=== PATIENT | male | born 1960 | race Caucasian/White ===

== ENCOUNTER 2016-12-17 18:12 | Observation (INO) | payer BC ==
[2016-12-17] MEDS ORDERED: NITROGLYCERIN OINT 1 INCH/GM PACKET TOPICAL STA (18:39)
--- NOTE | 2016-12-17 19:16 | XR ---
EXAMINATION TYPE: XR chest 2V DATE OF EXAM: 12/17/2016 6:57 PM COMPARISON: 11/22/2014 HISTORY: Chest pain TECHNIQUE: Frontal and lateral views of the chest are obtained. FINDINGS: Heart and mediastinum are normal. Lungs are clear. Diaphragm is normal. There are chest le ads. Bony thorax is intact. IMPRESSION: Normal chest. No change.
[2016-12-17 19:27] LABS: Basophils % (A) 0 %; CH 30.4; CHCM 34.3; Eosinophils # (A) 0.1 k/uL (0-0.7); Eosinophils % (A) 1 %; HDW 2.54; HGB 13.3 gm/dL (13.0-17.5); Luc # (Auto) 0.15; Luc % (Auto) 2; Lymphocytes # (A) 1.1 k/uL (1.0-4.8); Lymphocytes % (A) 17 %; MCH 30.4 pg (25.0-35.0); MCHC 34.1 g/dL (31.0-37.0); MCV 89.2 fL (80.0-100.0); Mean Platelet Volume 8.2; Monocytes # (A) 0.3 k/uL (0-1.0); Monocytes % (A) 4 %; Neutrophils # (A) 4.9 k/uL (1.3-7.7); Neutrophils % (A) 75 %; RBC 4.37 m/uL (4.30-5.90); RDW 12.8 % (11.5-15.5); WBC 6.5 k/uL (3.8-10.6); WBC (Perox) 6.65
[2016-12-17 19:40] LABS: ALT 33 U/L (21-72); AST 28 U/L (17-59); Alkaline Phosphatase 64 U/L (38-126); Anion Gap 14 mmol/L; Blood Urea Nitrogen 19 mg/dL (9-20); Carbon Dioxide 25 mmol/L (22-30); Chloride 103 mmol/L (98-107); Glucose 89 mg/dL (74-99); Magnesium 1.9 mg/dL (1.6-2.3); Non-African American GFR(MDRD) >60 (>60 ml/min/1.73 sqM); Sodium 142 mmol/L (137-145); Total Bilirubin 0.7 mg/dL (0.2-1.3); Total Protein 7.5 g/dL (6.3-8.2)
[2016-12-17 19:41] LABS: Creatine Kinase 176 U/L (55-170)
[2016-12-17 19:42] LABS: Partial Thromboplastin Time 25.5 sec (22.0-30.0); Prothrombin Time 10.5 sec (9.0-12.0)
[2016-12-17 19:54] LABS: Creatine Kinase MB 1.3 ng/mL (0.0-2.4); Troponin I <0.012 ng/mL (0.000-0.034)
--- NOTE | 2016-12-17 21:00 | ED ---
Chest Pain HPI - General Chief Complaint: Chest Pain Stated Complaint: light headed, chest pains Time Seen by Provider: 12/17/16 18:31 Source: patient Mode of arrival: wheelchair Limitations: no limitations - History of Present Illness Initial Comments: This 56-year-old white male presents complaining of some chest pain. He describes as a dull ache in the midsternal and left side of his chest. He states that this occurred at approximately 5:30 PM. He felt somewhat lightheaded when this occurred. It occurred at rest while sitting and watching TV. He denies any radiation, nausea, or shortness of breath. He took 2 sublingual nitroglycerin of his 's and had relief of the pain. He did take aspirin and route to the hospital. He does relate having a dull pain to his left lower abdomen which she has had for the past week and his been following up with his primary doctor in this regard. He denies any leg pain or swelling or history of DVT or PE. He states that he did have some EKG changes this past year and saw a asbestos wire finisher and had a negative stress test and echocardiogram. No other complaints or modifying factors. He denies any cardiac disease otherwise. - Related Data Home Medications Medication Instructions Recorded Confirmed Aspirin [Adult Low Dose Aspirin EC] 81 mg PO DAILY 12/17/16 12/17/16 Inulin/Chromium Picolinate [Fiber 1 tab PO DAILY 12/17/16 12/17/16 Gummies Chew] Multivit-Min/FA/Lycopen/Lutein 1 tab PO DAILY 12/17/16 12/17/16 [Centrum Silver Men Tablet] Nitroglycerin Sl Tabs [Nitrostat] 0.4 mg SUBLINGUAL Q5M PRN 12/17/16 12/17/16 Tamsulosin HCl [Flomax] 0.8 mg PO DAILY 12/17/16 12/17/16 Vital Reds Powder 5 ml PO DAILY 12/17/16 12/17/16 Allergies Allergy/AdvReac Type Severity Reaction Status Date / Time No Known Allergies Allergy Verified 12/17/16 19:21 Review of Systems ROS Statement: Those systems with pertinent positive or pertinent negative responses have been documented in the HPI. ROS Other: All systems not noted in ROS Statement are negative. Past Medical History Past Medical History: No Reported History History of Any Multi-Drug Resistant Organisms: None Reported Past Surgical History: Orthopedic Surgery Past Psychological History: No Psychological Hx Reported Smoking Status: Never smoker Past Alcohol Use History: None Reported Past Drug Use History: Marijuana General Exam - General Exam Comments Initial Comments: GENERAL: The patient is well nourished and well hydrated. VITAL SIGNS: Heart rate, blood pressure, respiratory rate reviewed as recorded in nurse's notes. EYES: Pupils are round and reactive. Extraocular movements are intact. No conjunctival / lid redness or swelling. ENT: No external evidence of injury, swelling, or ecchymosis. Airway is patent. Throat is clear. NECK: Nontender. No swelling or evidence of injury. No subcutaneous emphysema. Trachea is midline. No thyroid mass. HEART: Regular rate and rhythm. Good peripheral pulses. LUNGS/CHEST: Breath sounds clear and equal bilaterally. No rales, rhonchi, or wheezes. No ecchymosis, subcutaneous emphysema, or tenderness. ABDOMEN: Abdomen soft without tenderness. No palpable masses or organomegaly. No peritoneal signs. No abdominal wall swelling or ecchymosis. EXTREMITIES: No extremity tenderness. Normal muscle tone and function. No thoracolumbar tenderness. NEUROLOGIC: Sensation is grossly intact. Cranial nerve exam reveals face is symmetrical, tongue is midline, speech is clear. SKIN: No abrasions or ecchymosis is noted. No induration or masses noted. PSYCHIATRIC: Alert and oriented. Appropriate behavior and judgment. Limitations: no limitations Course Vital Signs 12/17/16 18:13 Temperature 98.2 F Pulse Rate 91 Respiratory 20 Rate Blood Pressure 149/102 O2 Sat by Pulse 97 Oximetry Chest Pain MDM - MDM The patient was seen and examined. All diagnostics were reviewed. EKG shows a normal sinus rhythm at a rate of [address]-T wave changes noted. The WV interval is 144, QRS duration is 106, and QTC intervals 447. The patient had a chest x-ray which did not show any acute abnormalities. The cardiac profile labs are all essentially within normal limits. It is felt as though the patient would require admission to the hospital for further cardiac evaluation and to rule out acute coronary syndrome. He is agreeable. Case is discussed with internal medicine and they're agreeable to admission. Disposition Clinical Impression: Chest pain, Unstable angina pectoris Disposition: ADMITTED IP TO THIS HOSP Condition: Fair Time of Disposition: 21:00 Decision Date: 12/17/16 Decision Time: 21:00
[2016-12-17] MEDS ORDERED: HEPARIN SODIUM,PORCINE 5,000 UNIT/ML 1 ML VIAL IV ONE (21:01)
[2016-12-17] MEDS ORDERED: HEPARIN SODIUM,PORCINE 5,000 UNIT/ML 1 ML VIAL IV PRN (21:01)
[2016-12-17] MEDS ORDERED: NITROGLYCERIN SL TABS 0.4 MG TAB SUBLINGUAL PRN (21:01)
[2016-12-17] MEDS ORDERED: HEPARIN SODIUM,PORCINE/D5W PMX 25,000 UNIT in DEXTROSE/WATER 1 500ML.BAG IV SCH (21:15)
[2016-12-17 22:40] VITALS: BMI 24.9
[2016-12-17] MEDS: NITROGLYCERIN OINT 1 INCH/GM PACKET TOPICAL SCH (23:32)
[2016-12-18 01:29] LABS: Creatine Kinase 150 U/L (55-170)
[2016-12-18 01:40] LABS: Troponin I <0.012 ng/mL (0.000-0.034)
[2016-12-18] MEDS: NITROGLYCERIN OINT 1 INCH/GM PACKET TOPICAL SCH (06:12)
[2016-12-18 07:07] LABS: Creatine Kinase 156 U/L (55-170)
[2016-12-18 07:12] LABS: Cholesterol 198 mg/dL (<200); HDL Cholesterol 47 mg/dL (40-60); Triglycerides 89 mg/dL (<150)
[2016-12-18 07:19] LABS: Creatine Kinase MB 1.2 ng/mL (0.0-2.4); Troponin I <0.012 ng/mL (0.000-0.034)
[2016-12-18] MEDS ORDERED: SODIUM CHLORIDE 0.9% 1,000 ML in EMPTY BAG 1 BAG IV ONE (08:47)
[2016-12-18] MEDS ORDERED: ALPRAZolam 0.25 MG TAB PO PRN (08:47)
[2016-12-18] MEDS ORDERED: ALPRAZolam 0.5 MG TAB PO PRN (08:47)
[2016-12-18] MEDS ORDERED: NITROGLYCERIN SL TABS 0.4 MG TAB SUBLINGUAL PRN (08:47)
[2016-12-18] MEDS ORDERED: ATORVASTATIN 80 MG TAB PO STA (08:47)
[2016-12-18] MEDS ORDERED: ASPIRIN 325 MG TAB PO STA (08:47)
[2016-12-18] MEDS ORDERED: TAMSULOSIN 0.4 MG CAP.ER.24H PO SCH (09:00)
[2016-12-18] MEDS ORDERED: VITAL REDS PO SCH (09:00)
[2016-12-18] MEDS ORDERED: ENOXAPARIN 40 MG/0.4 ML SYRINGE SQ SCH (09:00)
[2016-12-18] MEDS ORDERED: ASPIRIN 325 MG TAB PO SCH (09:00)
--- NOTE | 2016-12-18 09:29 | CONS ---
DATE OF CONSULTATION: . CHIEF COMPLAINT: Chest pain. Maikel is a 56-year-old gentleman with no significant past medical history that used to smoke cigarettes, that he quit about a year-old ago and has family history of premature coronary artery disease who presented to the hospital complaining of chest pain. He describes it as a sudden onset precordial chest pressure 6/10 intensity following which he became diaphoretic, he seemed to have felt the discomfort in his arms also. This pain had gradually subsided and he became pain free and had been doing well since admission. He is being treated with intravenous heparin, nitrates and aspirin. Three sets of cardiac enzymes ruled out for myocardial infarction and creatinine is normal. Past medical history is negative for hypertension, diabetes, dyslipidemia. Medications at home include: 1. Aspirin. 2. Sublingual nitroglycerin on a p.r.n. basis. 3. Flomax. No known drug allergies. FAMILY HISTORY: Significant for premature coronary artery disease. SOCIAL HISTORY: Quit smoking a year ago. REVIEW OF SYSTEMS: HEENT: Unremarkable. CARDIAC: As described above. RESPIRATORY: Negative. GI: Negative. GENITOURINARY: Negative. Allergy/immunology: Negative. SKIN: Negative. MUSCULOSKELETAL: Significant for arthritis. PSYCHOSOCIAL: Negative. ENDOCRINE: Negative. Dermatology: Negative. CONSTITUTIONAL: Negative. Oncological: Negative. The rest of the system review is not relevant. On exam, comfortable at rest. Vital signs are stable. There is no jugular venous distention. Carotid upstroke is normal. There is no bruit. Chest exam reveals good air entry bilaterally. Heart exam reveals first and second heart sounds. No gallop. No murmur, no rub. ABDOMEN: Soft, nontender. Exam of extremities did not reveal any edema. Peripheral pulses are felt. FLOOR SUPERVISOR exam did not reveal focal neurological deficits. Labs show a hemoglobin of 13.3, platelet count is 215. Potassium is 4. Creatinine is 0.9. Tropes are negative. LDL cholesterol is elevated at 133. ASSESSMENT: Unstable angina. PLAN: I talked to patient about his treatment options including coronary angiography to evaluate his coronary anatomy and streamline his management versus stress testing. Patient had a stress test within the last one year that was unremarkable opted to go for cardiac cath. Understands risks and benefits, and alternatives.
[2016-12-18] MEDS ORDERED: IV FLUID CONTINUATION 1,000 ML IV ONE (10:11)
[2016-12-18] MEDS ORDERED: LIDOCAINE 2% INJ 20 MG/ML (20 ML MDV) ONE (10:12)
[2016-12-18] MEDS ORDERED: diphenhydrAMINE 50 MG/ML 1 ML VIAL ONE (10:18)
[2016-12-18] MEDS ORDERED: MIDAZOLAM 2 MG/2 ML VIAL ONE (10:18)
--- NOTE | 2016-12-18 10:21 | ECHOF ---
Referral Reason: MEASUREMENTS -------- HEIGHT: 172.7 cm WEIGHT: 74.4 kg BP: 154/40 RVIDd: 2.9 cm (< 3.3) IVSd: 1.0 cm (0.6 - 1.1) LVIDd: 5.1 cm (3.9 - 5.3) LVPWd: 1.0 cm (0.6 - 1.1) IVSs: 1.1 cm LVIDs: 4.3 cm LVPWs: 1.3 cm LA Diam: 2.8 cm (2.7 - 3.8) LAESV Index (A-L): 34.61 ml/m Ao Diam: 3.7 cm (2.0 - 3.7) AV Cusp: 2.4 cm (1.5 - 2.6) LA Diam: 3.4 cm (2.7 - 3.8) MV EXCURSION: 23.601 mm (> 18.000) MV EF SLOPE: 88 mm/s (70 - 150) EPSS: 2.0 cm MV E Daren: 0.73 m/s MV DecT: 177 ms MV A Daren: 0.66 m/s MV E/A Ratio: 1.12 RAP: 5.00 mmHg FINDINGS -------- Sinus rhythm. This was a technically adequate study. The left ventricular size is normal. There is borderline concentric left ventricular hypertrophy. Overall left ventricular systolic function is normal with, an EF between 55 - 60 %. The right ventricle is normal in size. LA is moderately dilated 34-39 ml/m2 The right atrial size is normal. The aortic valve is trileaflet and appears structurally normal. There is no evidence of aortic regurgitation. The mitral valve is normal. Mild mitral regurgitation is present. Mild tricuspid regurgitation present. There is no evidence of pulmonary hypertension. The right ventricular systolic pressure, as measured by Doppler, is {RVSP}. Trace/mild (physiologic) pulmonic regurgitation. The aortic root size is normal. There is no pericardial effusion. CONCLUSIONS -------- 1. Sinus rhythm. 2. There is no pericardial effusion. 3. There is borderline concentric left ventricular hypertrophy. 4. Overall left ventricular systolic function is normal with, an EF between 55 - 60 %. 5. LA is moderately dilated 34-39 ml/m2 6. The aortic valve is trileaflet and appears structurally normal. 7. Mild mitral regurgitation is present. 8. Mild tricuspid regurgitation present. 9. There is no evidence of pulmonary hypertension. 10. Trace/mild (physiologic) pulmonic regurgitation. SCHOOL INSPECTOR: Margo Knight RDCS
[2016-12-18] MEDS ORDERED: MIDAZOLAM 2 MG/2 ML VIAL IV ONE (10:37)
[2016-12-18] MEDS ORDERED: diphenhydrAMINE 50 MG/ML 1 ML VIAL IVP ONE (10:39)
[2016-12-18] MEDS ORDERED: LIDOCAINE 2% INJ 20 MG/ML SQ ONE (10:41)
[2016-12-18] MEDS ORDERED: IOHEXOL 350 MG/ML 100 ML BOTTLE INJ ONE (11:05)
[2016-12-18] MEDS ORDERED: CLOPIDOGREL 75 MG TAB PO SCH (11:15)
--- NOTE | 2016-12-18 11:48 | CC ---
DATE OF SERVICE: INDICATION: Unstable angina. PROCEDURE NOTE: After obtaining informed consent, left heart catheterization and coronary angiogram are performed via the right femoral artery using standard Faheem catheters. Patient tolerated the procedure well without any obvious immediate complications. A femoral angiogram was performed. Angio-Seal was deployed for hemostasis. The total sedation time was 20 minutes. FINDINGS: 1. HEMODYNAMICS: Left ventricular end-diastolic pressure is 8 to 10 mm. There is no significant gradient across the aortic valve. 2. LEFT VENTRICULOGRAM: Left ventriculogram is not performed. 3. ANGIOGRAPHIC DATA: Left Main Coronary Artery: Left main coronary artery appears calcified, but is free of stenosis. It divides into left anterior descending coronary artery, ramus intermedius and circumflex coronary artery. Circumflex coronary artery is a nondominant vessel and is free of significant stenosis. Ramus intermedius is free of significant disease. LAD has a long segment of narrowing extending from primarily involving the LAD. At its worse, it seems to be a 50% stenosis. Right coronary artery is a large dominant vessel, shows atherosclerotic plaque involving proximal and mid RCA. There are no other focal hemodynamically significant lesions. CONCLUSION: Moderate atherosclerotic plaque involving the left anterior descending coronary artery. PLAN: Will treat the patient with optimal medical therapy with aspirin, Plavix, nitrates and statins. Arrange for an outpatient stress echo and if he has ischemia in LAD distribution, bring him back and do angioplasty of the LAD. Angiographic data was reviewed by Dr. Aponte the on-call lieutenant fire fighter.
[2016-12-18] MEDS ORDERED: CALCIUM POLYCARBOPHIL 625 MG TAB PO SCH (12:00)
[2016-12-18] MEDS ORDERED: MULTIVITAMINS, THERA 1 EACH TAB PO SCH (12:00)
[2016-12-18 16:42] VITALS: BP 133/88; PULSE 64; RESP 18; TEMP 97.8
[2016-12-18] MEDS ORDERED: ATORVASTATIN 40 MG TAB PO SCH (21:00)
--- NOTE | 2016-12-19 07:17 | HP ---
DATE OF ADMISSION: DATE OF SERVICE: 12/18/2016 Chief complaint is chest pain. HISTORY OF PRESENT ILLNESS: Mr. Edwards is a 56-year-old male without significant past medical history. Came to the hospital with complaints of chest pain, midsternal when he was sitting on the couch and talking to his . Patient says that chest pain associated with some dizziness and no radiation and no diaphoresis. No associated nausea or vomiting. Patient came to the hospital for evaluation. Patient does have a family history of premature coronary artery disease. Chest pain gradually subsided when he came to the hospital. Apparently, patient was found to have abnormal EKG by his primary physician, Dr. Oliver and was referred to brewer helper at [facility]. Patient had echocardiogram and stress test done there recently. Otherwise, patient denied any fever or chills. No recent illnesses. No sick contacts at home. No recent travel. REVIEW OF SYSTEMS: CONSTITUTIONAL: No fever. No chills. RESPIRATORY: No cough or sputum production. CARDIOVASCULAR: No chest pain. No short of breath. No leg swelling. ABDOMEN: No nausea, vomiting, or abdominal pain. Patient does have left inguinal discomfort for which patient is following with a urologist. PSYCHIATRIC: Cooperative. MUSCULOSKELETAL: Negative. All other 14-point review of systems negative except as above. PAST MEDICAL HISTORY: None. PAST SURGICAL HISTORY: Orthopedic surgery. ALLERGIES: No known drug allergies. SOCIAL HISTORY: Patient never a smoker. Patient denied any alcohol abuse. Patient does use marijuana on and off, no recent use. Home medications include: 1. Aspirin. 2. Fiber Gummies multivitamins. 3. Nitroglycerine sublingual. 4. Tamsulosin. 5. Vital Reds Powder. FAMILY HISTORY: No history of hypertension or diabetes. Patient says that family has a history of coronary artery disease in his father. PHYSICAL EXAMINATION: A 56-year-old male lying in the bed comfortably, awake, alert, oriented, x3. Appears to be in no apparent distress. VITALS: Blood pressure is 107/70, pulse is 58, respirations 16, temperature afebrile, pulse ox is 99% on room air. HEENT: Atraumatic, normocephalic. Neck is supple. No JVD. CVS EXAM: S1, S2 heard. No murmurs, no gallop, no rub. LUNGS: Bilateral air entry is present. No wheezing. No crackles. Nonlabored breathing. Abdomen is soft, nontender. Bowel sounds are present. ADMINISTRATIVE COORDINATOR: Awake, alert, oriented x3. No focal neurologic deficits, cranial nerves grossly intact. EXTREMITIES: No edema. Pulses palpable bilaterally. No clubbing or cyanosis. PSYCHIATRIC: Cooperative. LABORATORY DATA: WBC 6.5, hemoglobin 13.3, platelets 215, INR 1.0, sodium 142, potassium 4.0, chloride 103, bicarb is 25. BUN 19, creatinine 0.94. Magnesium 1.9. Troponin x3 negative. LDL is 133. EKG showed sinus arrhythmia with left vesicular block. IMPRESSION: 1. Unstable angina. Rule out acute coronary artery syndrome. 2. Hyperlipidemia. 3. History of never cigarette smoking. Marijuana use on and off. No recent use. 4. Recent cardiac work-up including stress test and echocardiogram at [facility]. DISCUSSION AND PLAN: Patient will be continued on tele monitoring, serial EKGs and troponins. Cardiology has seen the patient and recommended catheterization. Will continue with the current management and follow up closely. Further recommendations based on the clinical course.
[2016-12-19] MEDS ORDERED: ISOSORBIDE MONONITRATE ER 30 MG TAB.ER.24H PO SCH (09:00)
--- NOTE | 2016-12-19 12:04 | DS ---
DATE OF ADMISSION: 12/17/2016 DATE OF DISCHARGE: 12/18/2016 PROCEDURE: Cardiac catheterization procedure. DISCHARGE DIAGNOSES: 1. Unstable angina, negative cardiac catheterization. 2. Hyperlipidemia with LDL level of 133. 3. History of nicotine and smoking. 4. Marijuana occasionally. 5. Recent cardiac work-up at [facility]. HOSPITAL COURSE: Mr. Edwards is a 56-year-old male without significant past medical history admitted to the hospital with complaints of chest pain. Patient continued on telemetry monitoring. No new EKG changes noted. Patient underwent cardiac catheterization which was nonobstructive. Cardiology recommended follow-up as an outpatient and otherwise, patient does have some abdominal discomfort in the left lower quadrant mainly in the inguinal area. The patient does not know whether he has lifted heavy weights or not. Patient was seen by the Urologist. No active complaints at this time. Otherwise, patient was continued on Flomax which is his home medication and the patient was started on aspirin, statins and Plavix as per Cardiology recommendations. Cardiology recommended medical management. Patient does have moderate atherosclerotic plague involving the LAD. Recommended a follow-up outpatient stress test and possible angioplasty at that time. Patient otherwise currently is chest pain free and is being discharged home and follow as an outpatient with Dr. Estrada further management. DISCHARGE PHYSICAL EXAMINATION: A 56-year-old male lying in bed comfortably, awake, alert, oriented x3, appears to be in no apparent distress. VITALS: Blood pressure 133/88, pulse is 64, respirations 18, temperature afebrile, pulse ox 98% on room air. LABORATORY DATA: Reviewed. Troponin x3 negative. LDL is 133. Discharge physical examination done. His medication include: 1. Fiber gum chew 1 tablet p.o. daily. 2. Flomax 0.8 mg p.o. daily. 3. Vital Reds powder 5 mL p.o. daily. 4. Aspirin 325 mg p.o. daily. 5. Atorvastatin 40 mg p.o. at bedtime. 6. Clopidogrel 75 mg p.o. daily. 7. Imdur 30 mg p.o. daily. 8. Nitroglycerin sublingual 0.4 mg q.5 minutes p.r.n. for chest pain. Home with self-care. Activity as tolerated and follow with Dr. Sherry Oliver in 1 to [address] Amaury Estrada in 3 weeks.
== END 2016-12-18 18:36 | disposition home or self-care (01) ==
LOC: EC 18:12 → 3OBS 21:01
PROVIDERS: ADMIT Internal Medicine; ATTEND Internal Medicine
DX: I25.110 Atherosclerotic heart disease of native coronary artery with unstable angina pectoris (principal); E78.5 Hyperlipidemia, unspecified; F12.90 Cannabis use, unspecified, uncomplicated; Z79.82 Long term (current) use of aspirin; R42 Dizziness and giddiness; Z79.899 Other long term (current) drug therapy; R61 Generalized hyperhidrosis; I25.83 Coronary atherosclerosis due to lipid rich plaque
CPT/HCPCS: 36415; 93005; 93306; 93458; 80061; 80053; 82550 ×2; 82553 ×2; 83735; 84484 ×2; 85025; 85610; 85730 ×2; 71020; 99285; 96376; G0378 ×2; C1760; C1894; C1769; J2001; J2250; J1200; J1644 ×2; Q9967; 96365; 96366

== ENCOUNTER → 2017-08-29 | Outpatient (CLI) | payer BC ==
--- NOTE | 2017-08-29 08:34 | US ---
EXAMINATION TYPE: US abdomen complete DATE OF EXAM: 08/29/2017 COMPARISON: NONE CLINICAL HISTORY: LUQ Pain R10.12. EXAM MEASUREMENTS: Liver Length: 14.7 cm Gallbladder Wall: 0.2 cm CBD: 0.6 cm Spleen: 12.3 cm Right Kidney: 10.9 x 4.6 x 4.3 cm Left Kidney: 11.2 x 5.4 x 5.0 cm Pancreas: Tail obscured by overlying bowel gas, visualized portions wnl Liver: wnl Gallbladder: wnl Evidence for sonographic Rodriguez's sign: No CBD: Measuring upper limits of normal Spleen: wnl Right Kidney: Multiple cystic areas visualized, largest mid pole measuring 1.3 x 1.3 x 1.4 cm Left Kidney: Cyst visualized measuring 0.7 x 0.7 x 0.7 cm Upper IVC: wnl Abd Aorta: Limited visualization due to overlying bowel gas, wnl as visualized The liver is homogenous. The intrahepatic portion of the IVC and proximal abdominal aorta are within normal limits. There is no evidence of cholelithiasis. Common bile duct is unremarkable. The visu alized portions of the pancreas are homogenous. The spleen is unremarkable. Kidneys are symmetric a nd free of hydronephrosis. Bilateral renal cysts noted. IMPRESSION: 1. Bilateral renal cysts. 2. The remainder of the study is grossly
== END | disposition home or self-care (01) ==
LOC: RADUSWWP 07:33
PROVIDERS: ATTEND Internal Medicine
DX: N28.1 Cyst of kidney, acquired (principal)
CPT/HCPCS: 76700

== ENCOUNTER → 2021-10-18 | Outpatient (CLI) | payer BC ==
--- NOTE | 2021-10-18 21:08 | CT ---
EXAMINATION TYPE: CT abdomen pelvis w con CT DLP: 503.8 mGycm, Automated exposure control for dose reduction was used. DATE OF EXAM: 10/18/2021 7:17 PM COMPARISON: None. CLINICAL INDICATION:Male, 61 years old with history of R10.30 Lower Abdominal pain, lower abd pain TECHNIQUE: Standard CT of the abdomen and pelvis following the administration of 100 cc of Isovue 3 00 IV contrast material and oral contrast. Coronal and sagittal reformats were performed. FINDINGS: LOWER CHEST: Unremarkable ABDOMEN LIVER: Unremarkable GALLBLADDER AND BILE DUCTS: Unremarkable. PANCREAS: Unremarkable. SPLEEN: Unremarkable. ADRENAL GLANDS: Unremarkable. KIDNEYS AND URETERS: No evidence of hydronephrosis or renal calculus. The ureters are unremarkable. Right renal cyst measuring 1.2 cm. Left subcentimeter too small to characterize lesion. PELVIS BLADDER: Unremarkable REPRODUCTIVE: Mastectomy clips are seen bilaterally. Mild median lobe hypertrophy changes are noted. ABDOMEN & PELVIS STOMACH AND BOWEL: Scattered colonic diverticula most pronounced in the ascending and sigmoid colon. There is thickened wall appearance within this distal sigmoid measuring up to 9 mm. No evidence of bishnu wel obstruction. PERITONEUM: No evidence of pneumoperitoneum or free fluid. VASCULATURE: Mild atherosclerotic calcifications are present throughout the abdominal aorta and its b ranches. MUSCULOSKELETAL: Mild disc degeneration changes are present throughout the thoracolumbar spine. Left femoral head subchondral cystic changes. Left femoral head bony island. L5 vertebral body on the abdo men. LYMPH NODES: No gross evidence for lymphadenopathy. SOFT TISSUE/ABDOMINAL WALL: Fat filled umbilical hernia measuring 1.4 cm at the neck. IMPRESSION: Sigmoid colon diverticulitis/colitis. No evidence of organizing fluid collection or pneumoperitoneum. Follow-up with colonoscopy after resolution would be of benefit to rule out underlying lesion.
== END | disposition home or self-care (01) ==
LOC: RADCTMAIN 17:23
PROVIDERS: ATTEND Family Medicine
DX: R10.30 Lower abdominal pain, unspecified (principal)
CPT/HCPCS: 74177

== ENCOUNTER → 2022-04-22 | Outpatient (CLI) | payer BC ==
--- NOTE | 2022-04-22 09:05 | XR ---
EXAMINATION TYPE: XR shoulder complete 3 views RT DATE OF EXAM: 04/22/2022 Comparison: None Clinical History: 62-year-old male [id number] RT shoulder PAIN Findings: Moderate degenerative change at the AC joint with joint space narrowing and inferior spurring. Subacr omial space is preserved. No acute fracture, subluxation, or dislocation. Impression: [id number] AC joint OA. Inferior spurring may contribute to subacromial impingement. Clinically correlate. No acute osseous abnormality seen.
== END | disposition home or self-care (01) ==
LOC: RADXRYALE 08:45
PROVIDERS: ATTEND Physician Assistant
DX: M25.511 Pain in right shoulder (principal)

== ENCOUNTER → 2022-06-07 | Outpatient (CLI) | payer BC ==
--- NOTE | 2022-06-07 21:45 | MR ---
EXAMINATION TYPE: MR shoulder RT wo con DATE OF EXAM: 06/07/2022 COMPARISON: Right shoulder x-ray April 22, 2022 HISTORY: Right shoulder pain after strain injury 2 months earlier. TECHNIQUE: Multiplanar, multisequence imaging of the right shoulder is performed without contrast. FINDINGS: Rotator Cuff: Some increased signal in the distal supraspinatus tendon. Distal infraspinatus tendon i ntact. Subscapularis tendon intact with surrounding fluid. Rotator cuff muscle bulk preserved. Acromioclavicular Joint: Moderate to severe narrowing and moderate capsular hypertrophy. Mild to mode rate spurring. Loss of underlying fat plane noted coronal image 14 Glenohumeral Joint: Moderate size joint effusion. [id number] narrowing. Labrum: Abnormal superior labrum with marked increased signal. SLAP type tear is felt present. Biceps Tendon: The long head of biceps is not identified within bicipital groove. Focal tearing and m edial displacement is felt present from the labral anchor. Bone marrow signal: Subchondral cystic changes superolateral humeral head. Other: No additional significant abnormality is appreciated. IMPRESSION: 1. SLAP type superior labral tear with retracted tear and dislocation of long head of biceps tendon i s felt present. 2. Distal tendinosis supraspinatus tendon. Moderate to severe AC joint arthropathy with suggestion of underlying impingement.
== END | disposition home or self-care (01) ==
LOC: RADMRIMAIN 19:00
PROVIDERS: ATTEND Orthopaedic Surgery
DX: S43.431A Superior glenoid labrum lesion of right shoulder, initial encounter (principal); X58.XXXA Exposure to other specified factors, initial encounter

== ENCOUNTER → 2022-09-26 | Outpatient (CLI) | payer BC ==
[2022-09-26 18:40] LABS: Basophils # (A) 0.04 X 10*3/uL (0.00-0.10); Basophils % (A) 0.5 %; Eosinophils # (A) 0.31 X 10*3/uL (0.04-0.35); HCT 44.6 % (39.6-50.0); HGB 14.3 g/dL (13.0-17.0); Immature Grans, Automated 0.4 %; Lymphocytes # (A) 1.33 X 10*3/uL (0.90-5.00); Lymphocytes % (A) 17.2 %; MCH 29.9 pg (27.0-32.0); MCHC 32.1 g/dL (32.0-37.0); MCV 93.1 fL (80.0-97.0); Mean Platelet Volume 10.7 fL (9.5-12.2); Monocytes # (A) 0.53 X 10*3/uL (0.20-1.00); Monocytes % (A) 6.9 %; NRBC Per 100 WBC 0 /100 WBCS (0.0-0.0); Neutrophils # (A) 5.48 X 10*3/uL (1.80-7.70); Platelet Count 256 X 10*3/uL (140-440); RBC 4.79 X 10*6/uL (4.40-5.60); RDW 13.2 % (11.5-14.5); WBC 7.72 X 10*3/uL (4.50-10.00)
[2022-09-26 18:42] LABS: African American GFR (CKD) 93.1 (60.0-200.0); BUN/Creat Ratio 17.9 Ratio (12.00-20.00); Blood Urea Nitrogen 17.9 mg/dL (9.0-27.0); Calcium 9.7 mg/dL (8.7-10.3); Non-African American GFR(CKD) 80.3 (60.0-200.0); Potassium 4.6 mmol/L (3.5-5.5)
== END | disposition home or self-care (01) ==
LOC: LABPAT 10:33
PROVIDERS: ATTEND Orthopaedic Surgery
DX: Z01.812 Encounter for preprocedural laboratory examination (principal); M75.41 Impingement syndrome of right shoulder
CPT/HCPCS: 80048; 85025

== ENCOUNTER 2022-10-10 08:06 | Day surgery (SDC) | payer BC ==
--- NOTE | 2022-10-09 21:54 | HP ---
HISTORY AND PHYSICAL DATE OF SURGERY: 10/10/2022. HISTORY OF PRESENT ILLNESS: Maikel Edwards is a 62-year-old gentleman who is seen with progressive right shoulder pain. We discussed options for treatment. He elected to proceed with right shoulder arthroscopy. Consent regarding the procedure was obtained, cardiac clearance was provided by Dr. Yost. PAST MEDICAL HISTORY: Cardiovascular disease, hypertension. PAST SURGICAL HISTORY: Cardiovascular catheterization with stent insertion, knee arthroscopy. DAILY MEDICATIONS: 1. Brilinta. 2. Aspirin. 3. Metoprolol. ALLERGIES: None. SOCIAL HISTORY: He denies tobacco use. PHYSICAL EVALUATION OF RIGHT SHOULDER: He flexes to 130 degrees, abduction 100 degrees, external rotation is 40 degrees with weakness. There is tenderness along the anterior lateral acromion and rotator cuff insertion site impingement is positive at 90 degrees. Cross-body adduction sign is positive. Drop-arm sign is positive. Distal neurovascular exam is intact. RADIOGRAPHS: Right shoulder radiographs revealed a type 2 acromion evidence for acromioclavicular joint osteoarthritis and cystic changes of the tuberosity. Right shoulder MRI revealed a dislocated biceps tendon, labral tear, and acromioclavicular joint osteoarthritis. IMPRESSION: 1. Right shoulder impingement with labral tear. 2. Right shoulder acromioclavicular joint osteoarthritis. 3. Right shoulder biceps tendon dislocation. 4. Cardiovascular disease. 5. Hypertension. PLAN: Right shoulder arthroscopy with subacromial decompression, arthroscopic Kenan procedure, arthroscopic biceps tenotomy, and debridement of labral tear. MMODL / IJN: [id number] /
[2022-10-10 08:59] VITALS: TEMP 97
[2022-10-10] MEDS ORDERED: HYDROmorphone 0.5 MG/0.5 ML SYRINGE IVP PRN (09:02)
[2022-10-10] MEDS ORDERED: DEXAMETHASONE SOD PHOSPHATE 4 MG/ML 1 ML VIAL IV ONE (09:02)
[2022-10-10] MEDS ORDERED: LACTATED RINGERS 1,000 ML IV SCH (09:02)
[2022-10-10] MEDS ORDERED: LIDOCAINE 1% (10MG/ML) FOR IV START INTRADERMA ONE (09:10)
[2022-10-10] MEDS: DEXAMETHASONE SOD PHOSPHATE 4 MG/ML 1 ML VIAL IV ONE ×2 (09:12→09:13)
[2022-10-10] MEDS ORDERED: MIDAZOLAM 2 MG/2 ML VIAL IVP ONE ×2 (09:12→09:14)
[2022-10-10] MEDS: ONDANSETRON 4 MG/2 ML VIAL IVP ONE ×2 (09:12→09:13)
[2022-10-10] MEDS ORDERED: LACTATED RINGERS 1,000 ML IV ONE ×2 (09:13)
[2022-10-10] MEDS ORDERED: ROPIVACAINE 5 MG/ML 30 ML VIAL ONE (09:45)
[2022-10-10] MEDS ORDERED: LIDOCAINE 2% INJ 20 MG/ML (2 ML VIAL) ONE (09:45)
[2022-10-10] MEDS ORDERED: DEXAMETHASONE SOD PHOSPHATE 4 MG/ML 1 ML VIAL ONE (09:45)
[2022-10-10] MEDS ORDERED: PROPOFOL 10 MG/ML 20 ML VIAL IV ONE (09:45)
[2022-10-10] MEDS ORDERED: SUCCINYLCHOLINE CHLORIDE 200 MG/10 ML VIAL IV ONE (09:45)
[2022-10-10] MEDS ORDERED: fentaNYL (PF) 50 MCG/ML 2 ML AMP ONE (09:45)
--- NOTE | 2022-10-10 10:30 | P.ANPRN ---
Procedure Note - Anesthesia - Nerve Block Performed Right Interscalene Single Time Out Performed: Yes Date of Procedure: 10/10/22 Procedure Start Time: : Procedure Stop Time: : Location of Patient: PreOp Indication: Acute Post-Operative Pain, Requested by Surgeon Sedation Type: Sedate with meaningful contact maintained Position: Supine Needle Types: Pajunk Needle Gauge: 21 Ultrasound used to visualize needle placement: Yes Ultrasound used to observe medication spread: Yes Blood Aspirated: No Pain Paresthesia on Injection Noted: No Resistance on Injection: Normal Image Stored and Saved: Yes Events: Uneventful and Well Tolerated (Ropivacaine 0.5% 20 mL plus dexamethasone 4 mg)
--- NOTE | 2022-10-10 11:19 | P.OP ---
Date of Procedure: 10/10/22 Preoperative Diagnosis: Right shoulder impingement Postoperative Diagnosis: 1. Right shoulder rotator cuff tear 2. Right shoulder impingement 3. Right shoulder acromioclavicular joint osteoarthritis 4. Right shoulder superficial labral tear Procedure(s) Performed: 1. Right shoulder arthroscopic rotator cuff repair 2. Right shoulder arthroscopic subacromial decompression 3. Right shoulder arthroscopic Kenan procedure 4. Right shoulder arthroscopic debridement superficial labral tear Implants: 1Arthrex 4.75 swivel lock anchor Anesthesia: GETA, regional (Interscalene block) Surgeon: Dc Vergara Marine Drafter #1: Nito Albarran Estimated Blood Loss (ml): 10 Pathology: none sent Condition: stable Disposition: PACU Indications for Procedure: 62-year-old patient seen with progressive right shoulder pain. After having treatment options discussed, he elected to proceed with arthroscopy. Operative Findings: See description of procedure Description of Procedure: Patient underwent an interscalene block by department of anesthesia. The patient was then taken to the operative suite. The patient underwent a general anesthetic by the department of anesthesia. The patient was placed into a lateral position and secured. There was appropriate padding of the bony prominence. Right shoulder was then prepped and draped in normal sterile orthopedic fashion. We placed the extremity in 10 pounds of longitudinal traction. A posterior incision was now made for a posterior working portal site. The trocar and cannula were inserted into the glenohumeral joint. Arthroscopy was initiated. Spinal needle was now inserted anteriorly, to ascertain the anterior working portal site. An incision was now made in that area, a trocar was inserted followed by a probe. There was some superficial tearing of the superior and anterior labrum. There were grade 1 chondromalacia changes of the lumbar fossa. The biceps tendon was absent. I debrided out the superficial labral tears. The residual labrum was probed and was found to be stable. Instruments were now removed from glenohumeral joint. Utilizing the posterior working portal site, the trocar and cannula were inserted into the subacromial space. Arthroscopy initiated. I made an incision 2 fingerbreadths lateral to the acromion. I introduced my trocar followed by my ArthroCare ablator. I now began ablating thick subacromial bursal tissue, which exposed the undersurface of the anterior acromion. There was diminished subacromial space. There was a very prominent anterior acromion. A motorized bur was introduced and a subacromial decompression was performed. I also excised some osteophytes off the inferior aspect of the distal clavicle. The AC joint was visualized and noted to be fairly arthritic. The motorized bur was introduced in the anterior portal site and a Kenan procedure was performed without difficulty, decompressing the AC joint nicely. I turned my attention to the rotator cuff. There was a full-thickness perforation/tear along the distal supraspinatus tendon. I debrided the margins getting down to stable tendon tissue. The defect/tear measuring 1.5 cm and was freely mobile over the footprint. I abraded the footprint with a motorized bur. With the assistance of Jose MCKOY I passed 3 everted mattress sutures through good bites of rotator cuff tendon. I punched hole in the footprint area for insertion of an anchor. All 6 limbs of suture were passed through the eyelet of a 4.75 Arthrex swivel lock anchor. I placed the eyelet into the pre-punched hole. I held it in position while Jose MCKOY tensioned all 6 suture limbs and deployed the anchor with good fixation noted. All residual suture limbs were now clipped. We had good compression of the tendon along the entire footprint. Instruments now removed from the portal sites. All portal sites were approximated with nylon suture. Sterile dressings were applied followed by a shoulder sling. Nito MCKOY assisted in this case. The patient was awakened, transferred to a bed, and taken to recovery in stable condition.
[2022-10-10 12:02] VITALS: RESP 16
[2022-10-10 12:25] VITALS: BP 122/76; PULSE 54
== END 2022-10-10 12:49 | disposition home or self-care (01) ==
LOC: OR 08:06
PROVIDERS: ATTEND Orthopaedic Surgery
DX: M75.121 Complete rotator cuff tear or rupture of right shoulder, not specified as traumatic (principal); M19.011 Primary osteoarthritis, right shoulder; M75.41 Impingement syndrome of right shoulder; M94.211 Chondromalacia, right shoulder; S43.431A Superior glenoid labrum lesion of right shoulder, initial encounter; M25.711 Osteophyte, right shoulder; S46.211A Strain of muscle, fascia and tendon of other parts of biceps, right arm, initial encounter; I10 Essential (primary) hypertension; Z79.891 Long term (current) use of opiate analgesic; I25.10 Atherosclerotic heart disease of native coronary artery without angina pectoris; Z79.82 Long term (current) use of aspirin; Z79.02 Long term (current) use of antithrombotics/antiplatelets; E78.5 Hyperlipidemia, unspecified; Z95.5 Presence of coronary angioplasty implant and graft; N42.9 Disorder of prostate, unspecified; Z79.899 Other long term (current) drug therapy
CPT/HCPCS: 29827; 29826; 29824; 64415; 76942; C1713; J2250; J0330; J1100; J2405; J0690; J3010; J2795; J2704; J2001